=== PATIENT | female | born 2000 | race Caucasian/White ===

== ENCOUNTER 2022-01-05 22:55 | Emergency (ER) | payer OTHER ==
[~2022-01-05] VITALS: Ht 170.2 cm; Wt 68.0 kg
--- NOTE | 2022-01-05 22:59 | NUR ---
Dr Ellis at bedside, MSE in progress.
[2022-01-05] MEDS ORDERED: ONDANSETRON ODT 4 MG TAB.RAPDIS SL ONE (23:30)
[2022-01-05] MEDS ORDERED: HYDROCODONE/APAP 5-325MG TABLET PO ONE (23:30)
[2022-01-05] MEDS ORDERED: ONDANSETRON ODT 4 MG TAB.RAPDIS ONE (23:31)
[2022-01-05] MEDS ORDERED: HYDROCODONE/APAP 5-325MG TABLET ONE (23:32)
[2022-01-06] MEDS ORDERED: ONDA4TAB5 PO (00:28)
[2022-01-06] MEDS ORDERED: HYDR-4209 PO (00:28)
--- NOTE | 2022-01-06 00:50 | NUR ---
Patient discharged to home in stable condition. Written and verbal after care instructions given. Patient verbalizes understanding of instructions. Stressed follow up or return to ER for worsening s/s. Crutches dispensed. Pt instructed on proper use of crutches. Patient able to demonstrate correct use of crutches.
[2022-01-06 00:53] VITALS: BP 114/70
== END 2022-01-06 00:54 | disposition home or self-care (01) ==
LOC: ER 22:55
DX: S93.401A Sprain of unspecified ligament of right ankle, initial encounter (principal); W18.49XA Other slipping, tripping and stumbling without falling, initial encounter; Y93.41 Activity, dancing; Y92.89 Other specified places as the place of occurrence of the external cause; J45.909 Unspecified asthma, uncomplicated
CPT/HCPCS: 73610; A4663; Q0162